=== PATIENT | female | born 1980 | race Caucasian/White ===

== ENCOUNTER 2016-10-24 10:34 | Emergency (ER) | payer MEDICAID ==
--- NOTE | ~2016-10-24 | CT16 ---
[facility] A Service of [facility] RADIOLOGY TEXT RESULTS PATIENT: SOLOMON MOLINA LOCATION: [facility] : [birth year] UNIT #: [id number] AGE: [address]: Walt Dickson MD SEX: F ORDER DR: [id number] [facility] [address] [place], [place] [address] [id number] E MR#: [id number] Acc #: [id number] NAME: SOLOMON MOLINA : 1980 SEX: F STUDY DATE/TIME: 10/24/2016 14:16 UNIT: [facility] ROOM: STUDY DESCRIPTION: CT Angio Chest for PE Attending Physician: Walt Dickson M.D. Ordering Physician: Walt Dickson M.D. Primary Care Physician: Primary Care Physician No MEDICAL IMAGING REPORT This report is preliminary unless electronic signature is present EXAM Chest CT with contrast, with CT angiography HISTORY Chest pain radiating to the left arm for the past 2 days with previous history of DVT and pulmonary embolism. COMPARISON 02/28/2015 TECHNIQUE Axial imaging was obtained through the chest with contrast. 80 mL of Isovue was used. CT angiography was performed with thick sliding MIPs in the sagittal and coronal projections. This CT exam was performed with one or more of the following radiation dose reduction techniques: Automatic exposure control, adjustment of mA and/or kV according to patient size, and iterative reconstruction. FINDINGS Chest images at mediastinal window show good filling of the pulmonary arteries. There are no pulmonary artery filling defects to suggest emboli. There is no evidence of pleural or pericardial fluid. No adenopathy is noted. There is a calcified granuloma in the right lung. The CT angiographic images also show no evidence of emboli. Lung window imaging shows mild atelectasis at the right lung base posteriorly. No suspicious masses or infiltrates are seen. IMPRESSION Mild atelectasis at the right lung base. No evidence of pulmonary embolism. No acute findings. [facility] A Service of [facility] RADIOLOGY TEXT RESULTS PATIENT: SOLOMON MOLINA LOCATION: [facility] : 82 UNIT #: [id number] AGE: [address]: Walt Dickson MD SEX: F ORDER DR: Dictated by... Yoel Santoyo M.D. THIS IS AN ELECTRONICALLY VERIFIED REPORT Yoel Santoyo M.D. at 10/30/2016 7:10 AM RLF/zack TD: 10/24/2016 19:00 JOB #: [id number] MEDICAL IMAGING REPORT Page 1 of 1 COPY
--- NOTE | ~2016-10-24 | EKG ---
PATIENT: SOLOMON MOLINA UNIT #: [id number] Ventricular Rate: 68 BPM Atrial Rate: 68 BPM P-R Interval: 152 ms QRS Duration: 82 ms Q-T Interval: 390 ms QTC Calculation(Bezet): 414 ms P Union: 53 degrees Calculated R Union: 61 degrees Calculated T Union: 37 degrees Diagnosis Line: Normal sinus rhythm Diagnosis Line: Normal ECG Diagnosis Line: When compared with ECG of 17-DEC-2011 16:35, Diagnosis Line: Nonspecific T wave abnormality no longer evident Diagnosis Line: in Inferior leads Diagnosis Line: Nonspecific T wave abnormality no longer evident Diagnosis Line: in Anterolateral leads Diagnosis Line: Confirmed by ROSEMARY SIMON MD ([id number]) on Diagnosis Line: 10/25/2016 6:47:20 AM INTERPRETING : RACHELLE
--- NOTE | ~2016-10-24 | CR72 ---
[facility] A Service of [facility] & [facility] RADIOLOGY TEXT RESULTS PATIENT: SOLOMON MOLINA LOCATION: [facility] : 82 UNIT #: [id number] AGE: [address]: Walt Dickson MD SEX: F ORDER DR: [id number] [facility] [address] [place], [place] [address] [id number] E MR#: [id number] Acc #: [id number] NAME: SOLOMON MOLINA : 1980 SEX: F STUDY DATE/TIME: 10/24/2016 11:12 UNIT: [facility] ROOM: STUDY DESCRIPTION: CR Chest Single View Portable Attending Physician: Walt Dickson M.D. Ordering Physician: Walt Dickson M.D. Primary Care Physician: No Primary Care Physician MEDICAL IMAGING REPORT This report is preliminary unless electronic signature is present EXAM Portable chest 10/24/2016 COMPARISON 09/30/2015 HISTORY 2 day history of chest pain. FINDINGS Lungs are well aerated without infiltrate. There is no consolidation or effusion or pneumothorax. There is old granulomatous disease, unchanged since exams dating back to July 22, 2014. IMPRESSION Old granulomatous disease, no acute disease. No interval change since 07/22/2014. Dictated by... Alfredo Zurita M.D. THIS IS AN ELECTRONICALLY VERIFIED REPORT Alfredo Zurita M.D. at 10/24/2016 4:27 PM TEV/rnr TD: 10/24/2016 15:32 JOB #: [id number] MEDICAL IMAGING REPORT Page 1 of 1 COPY
[~2016-10-24 10:34] MED LIST: ADULT TUSS100 MG/5 M PO; ALBUTEROL17 GM INH; AUGMENTIN PO; CARAFATE1 G PO; CERTAGEN PO; COLACE PO; COLACE50 MG PO; COUMADIN PO; COUMADIN10 MG PO; DARVOCET A500 T1 TA1 PO; DICLOFENAC PO; DOCUSATE SODIU100 MG PO; FENTANYL1 EAC2; FLEXERIL PO; FLEXERIL10 MG PO; HCTZ PO; HYDROCODON-ACE1 EAC5 PO; IBUPROFEN100 MG PO; IBUPROFEN600 MG PO; K-DUR20 ME1 PO; KAPIDEX30 MG PO; KAPIDEX60 MG PO; KEFLEX PO; LORTAB 10-5001 EACH PO; LORTAB 5/500 TA1 TA1 PO; LOVENOX100 MG/ML INJ; MEDROL PO; NAPROXEN PO; NAPROXEN500 M1 PO; NEURONTIN PO; NEURONTIN300 MG PO; NO MEDICATIONS; NORCO 10-325 TA1 TAB; OXYCODONE HCL5 M1 PO; PERCOCET 10/3251 TAB PO; PERCOCET 5-3251 TAB PO; PHENERGAN DM1 ML PO; PREDNISONE PO; PREDNISONE10 MG PO; PROCTOFOAM-HC10 G1 RC; ROBAXIN500 MG PO; RONDEC-DM ORAL30 ML PO; TUCKS RC; ULTRAM PO; VIBRAMYCIN100 M1 PO; VOLTAREN75 MG PO; ZANAFLEX4 M1 PO; ZITHROMAX PO
[2016-10-24 11:45] LABS: BASOPHIL% 0.4 % (0-2.5); EOSINOPHIL# 0.1 X10e3 (0-0.7); EOSINOPHIL% 1.6 % (0.0-7.0); HEMATOCRIT 41.7 % (35.0-45.0); HEMOGLOBIN 13.9 gm/dL (12.0-16.0); LYMPHOCYTE# 1.9 X10e3 (1.0-3.5); LYMPHOCYTE% 33.4 % (17.0-45.0); MEAN CELL VOLUME 91.7 FL (83-96); MEAN CORPUSCULAR HEMOGLOBIN 30.7 PG (28-34); MEAN CORPUSCULAR HGB CONC 33.4 g/dL (30-36); MEAN PLATELET VOLUME 8.7 FL (6.5-11.5); MONOCYTE# 0.5 X10e3 (0-1.0); MONOCYTE% 8.1 % (3.0-12.0); NEUTROPHIL# 3.3 X10e3 (1.5-7.1); NEUTROPHIL% 56.5 % (40-75); PLATELET COUNT 146 X10e3 (140-420); RED BLOOD COUNT 4.55 X10e (3.90-5.30); RED CELL DISTRIBUTION WIDTH 13.7 % (11.0-15.5); WHITE BLOOD COUNT 5.8 X10e3 (4.0-10.5)
[2016-10-24 11:47] LABS: DIFF IND NO
[2016-10-24 11:54] LABS: POC - CKMB <1.0 ng/mL (0.0-7.9); POC - TROPONIN <0.05 ng/mL (<=0.05)
[2016-10-24 12:13] LABS: INR 1.1; PARTIAL THROMBOPLASTIN TIME 25.4 SECONDS (23.5-31.3); PROTHROMBIN TIME (PATIENT) 12.4 SECONDS (10.0-11.7)
[2016-10-24 12:20] LABS: ALBUMIN SERUM 4.1 g/dL (3.5-5.0); BILIRUBIN, DIRECT 0.1 mg/dL (0.0-0.2); BILIRUBIN,INDIRECT 0.3 mg/dL (0.0-0.9); BILIRUBIN,TOTAL 0.4 mg/dL (0.2-2.0); CALCIUM SERUM 8.6 mg/dL (8.4-10.2); CREATININE SERUM 0.8 mg/dL (0.6-1.4); GLOM FILT RATE Estimated 95.6 mL/min (>60); POTASSIUM 4.2 mmol/L (3.5-5.1); PROTEIN TOTAL SERUM 7.2 g/dL (6.0-8.3)
== END 2016-10-24 15:42 | disposition home or self-care (01) ==
LOC: CED 10:34
PROVIDERS: Emergency Medicine
DX: R09.1 Pleurisy (principal); R79.1 Abnormal coagulation profile; F17.210 Nicotine dependence, cigarettes, uncomplicated; Z98.51 Tubal ligation status; Z79.01 Long term (current) use of anticoagulants
CPT/HCPCS: 36415; 71010; 71275; 80048; 80076; 82553; 84484; 85025; 85610; 85730; 93005; 96374; 99285; J1885; Q9967